=== PATIENT | male | born 1995 | race Caucasian/White ===

== ENCOUNTER 2017-10-30 17:58 | Emergency (ER) | payer SELFPAY ==
[2017-10-30 19:42] LABS: Basophils % (Auto) 0.5 % (0.0-1.8); Eosinophils # (Auto) 0.1 K/mm3 (0.0-0.4); Eosinophils % (Auto) 1.3 % (0.0-4.3); Hematocrit 43.8 % (35.5-45.6); Hemoglobin 14.6 gm/dl (11.8-15.2); Lymphocytes # (Auto) 2.3 K/mm3 (1.2-5.4); Mean Corpuscular HGB Conc 33 % (32-34); Mean Corpuscular Hemoglobin 31 pg (28-32); Mean Corpuscular Volume 94 fl (84-94); Monocytes # (Auto) 0.9 K/mm3 (0.0-0.8); Monocytes % (Auto) 9.5 % (0.0-7.3); Platelet Count 257 K/mm3 (140-440); Red Blood Count 4.67 M/mm3 (3.65-5.03); Red Cell Distribution Width 13.4 % (13.2-15.2)
[2017-10-30 20:04] LABS: Alanine Aminotransferase 14 units/L (7-56); Albumin 4.6 g/dL (3.9-5); BUN/Creatinine Ratio 20; Blood Urea Nitrogen 18 mg/dL (9-20); Hemolysis Index 13
[2017-10-30 20:45] LABS: Bacteria,Urine 1+ /HPF (Negative); Bilirubin,Urine NEG (Negative); Blood,Urine NEG (Negative); Color,Urine Straw (Yellow); Mucus,Urine FEW /HPF; Protein,Urine <15 mg/dL mg/dL (Negative); Urobilinogen,Urine < 2.0 mg/dL (<2.0)
[2017-10-30] MEDS ORDERED: TORADOL IM ONE (20:48)
[2017-10-30] MEDS ORDERED: ROCEPHIN IM ONE (21:10)
[2017-10-30] MEDS ORDERED: XYLOCAINE 1% MPF 5 mL INFILTRATI ONE (21:10)
[2017-10-30] MEDS ORDERED: ZITHROMAX PO ONE (21:11)
--- NOTE | 2017-10-30 21:50 | Cat Scan Report ---
FINAL REPORT EXAM: CT ABDOMEN PELVIS WO CON HISTORY: right side flank pain that radiates TECHNIQUE: CT abdomen and pelvis without contrast PRIORS: None. FINDINGS: No acute abnormality identified in the lung bases. No focal abnormality identified within the liver parenchyma. The spleen demonstrates normal size and attenuation. No pancreatic abnormalities seen. Kidneys demonstrate no evidence of hydronephrosis or nephrolithiasis. No ureteral calculus identified. The adrenal glands are unremarkable. Abdominal aorta is normal in caliber. There are some prominent right lower quadrant central mesenteric lymph nodes along with some mildly prominent distal small bowel loops. Nonspecific however may reflect mesenteric adenitis. The appendix is not definitively identified No signs of free fluid or free air No evidence of small bowel dilatation. Urinary bladder is unremarkable. IMPRESSION: Prominent right lower quadrant and mesenteric lymph nodes. Nonspecific finding however may be seen with mesenteric adenitis
--- NOTE | 2017-10-30 22:08 | Emergency Department Report ---
ED Male HPI - General Chief complaint: Abdominal Pain Stated complaint: RIGHT FLANK PAIN Time Seen by Provider: 10/30/17 20:44 Source: patient Mode of arrival: Ambulatory Limitations: No Limitations - History of Present Illness Initial comments: 22-year-old male presents to the emergency room for right flank pain and blood in urine. Patient reports that his urine is been dark and it hurts when he urinates. Patient reports that he is sexually active with women unprotected 2 partners in the last 6 months. He reports that he works out a lot. He reports that the right flank pain radiates to the right groin area. He reports that the pain is sharp intermittent. He reports he has taken no meds. He has no past medical history currently takes no medications on a daily basis and has no known drug allergies. MD Complaint: testicle pain (right testicle), other (right flank pain) -: days(s) (1) Location: right testicle Severity scale (0 -10): 8 Quality: sharp Consistency: intermittent Worsens with: urination blood in urine, dysuria. denies: fever, nausea/vomiting - Related Data Previous Rx's Medication Instructions Recorded Last Taken Type HYDROcodone/APAP 10-325 [[place] 1 each PO Q6HR PRN #20 tablet 01/24/14 01/31/14 Rx 10-325 mg TAB] Promethazine [Phenergan] 25 mg PO Q6H PRN #12 tablet 01/24/14 01/31/14 Rx Ranitidine HCl [Ranitidine] 150 mg PO Q12H #60 tablet 01/24/14 01/31/14 Rx Doxycycline [Vibramycin CAP] 100 mg PO BID #20 capsule 02/02/14 Unknown Rx metroNIDAZOLE [Flagyl] 500 mg PO Q8HR #20 tablet 02/02/14 Unknown Rx Acetaminophen/Codeine [Tylenol #3] 1 tab PO TID PRN #15 tab 02/03/15 Unknown Rx Ibuprofen [Motrin 800 MG tab] 800 mg PO Q8HR PRN #60 tablet 02/03/15 Unknown Rx Ciprofloxacin HCl [Cipro] 500 mg PO QDAY #7 tablet 10/30/17 Unknown Rx Ibuprofen [Motrin 800 MG tab] 800 mg PO Q8HR PRN #15 tablet 10/30/17 Unknown Rx Allergies Allergy/AdvReac Type Severity Reaction Status Date / Time No Known Allergies Allergy Verified 02/03/15 17:43 ED Review of Systems ROS: Stated complaint: RIGHT FLANK PAIN Other details as noted in HPI Constitutional: denies: chills, fever Endocrine: no symptoms reported Gastrointestinal: denies: abdominal pain, nausea, diarrhea Genitourinary: urgency, dysuria, hematuria, discharge, testicular pain Musculoskeletal: other Skin: denies: rash, lesions Neurological: denies: headache, weakness, paresthesias Psychiatric: denies: anxiety, depression Hematological/Lymphatic: denies: easy bleeding, easy bruising ED Past Medical Hx - Past Medical History Previous Medical History?: Yes Additional medical history: heart mumur - Surgical History Hx Appendectomy: Yes - Social History Smoking Status: Current Some Day Smoker Substance Use Type: Alcohol - Medications Home Medications: Home Medications Medication Instructions Recorded Confirmed Last Taken Type HYDROcodone/APAP 10-325 [[place] 1 each PO Q6HR PRN #20 tablet 01/24/14 02/02/14 01/31/14 Rx 10-325 mg TAB] Promethazine [Phenergan] 25 mg PO Q6H PRN #12 tablet 01/24/14 02/02/14 01/31/14 Rx Ranitidine HCl [Ranitidine] 150 mg PO Q12H #60 tablet 01/24/14 02/02/14 Rx Doxycycline [Vibramycin CAP] 100 mg PO BID #20 capsule 02/02/14 Unknown Rx metroNIDAZOLE [Flagyl] 500 mg PO Q8HR #20 tablet 02/02/14 Unknown Rx Acetaminophen/Codeine [Tylenol #3] 1 tab PO TID PRN #15 tab 02/03/15 Unknown Rx Ibuprofen [Motrin 800 MG tab] 800 mg PO Q8HR PRN #60 tablet 02/03/15 Unknown Rx Ciprofloxacin HCl [Cipro] 500 mg PO QDAY #7 tablet 10/30/17 Unknown Rx Ibuprofen [Motrin 800 MG tab] 800 mg PO Q8HR PRN #15 tablet 10/30/17 Unknown Rx ED Physical Exam - General Limitations: No Limitations General appearance: alert, in no apparent distress - Head Head exam: Present: atraumatic, normocephalic - Respiratory Respiratory exam: Present: normal lung sounds bilaterally. Absent: respiratory distress - Cardiovascular Cardiovascular Exam: Present: regular rate, normal rhythm. Absent: systolic murmur, diastolic murmur, rubs, gallop - GI/Abdominal GI/Abdominal exam: Present: soft - exam: Present: testicular tenderness (right). Absent: circumcision External exam: Present: other (right lymphadenopathy in the groin) - Extremities Exam Extremities exam: Present: normal inspection - Back Exam Back exam: Present: CVA tenderness (R) - Neurological Exam Neurological exam: Present: alert, oriented X3 - Psychiatric Psychiatric exam: Present: normal affect, normal mood - Skin Skin exam: Present: warm, dry, intact, normal color. Absent: rash ED Course Vital Signs 10/30/17 10/30/17 18:57 20:57 Temperature 98.4 F Pulse Rate 57 L Respiratory 16 18 Rate Blood Pressure 124/73 O2 Sat by Pulse 97 Oximetry ED Medical Decision Making - Lab Data Result diagrams: 10/30/17 19:17 10/30/17 19:17 - Radiology Data Radiology results: report reviewed, image reviewed FINDINGS: No acute abnormality identified in the lung bases. No focal abnormality identified within the liver parenchyma. The spleen demonstrates normal size and attenuation. No pancreatic abnormalities seen. Kidneys demonstrate no evidence of hydronephrosis or nephrolithiasis. No ureteral calculus identified. The adrenal glands are unremarkable. Abdominal aorta is normal in caliber. There are some prominent right lower quadrant central mesenteric lymph nodes along with some mildly prominent distal small bowel loops. Nonspecific however may reflect mesenteric adenitis. The appendix is not definitively identified No signs of free fluid or free air No evidence of small bowel dilatation. Urinary bladder is unremarkable. IMPRESSION: Prominent right lower quadrant and mesenteric lymph nodes. Nonspecific finding however may be seen with mesenteric adenitis Transcribed By: [facility] Dictated By: NICOLE MODI MD Electronically Authenticated By: NICOLE MODI MD Signed Date/Time: 10/30/172144 DD/ 44 TD/TT: 10/30/172144 FINDINGS: Right testicle is 4.5 x 2.4 x 3.1 centimeters The left testicle is 4.7 x 2.1 x 3.1 centimeters. There is normal echogenicity bilaterally. There is normal vascular flow on pulsed and color Doppler evaluation. Epididymis is not enlarged. There is no evidence for hydrocele or varicocele. Multiple small calcifications are present throughout both testicles most consistent with microlithiasis. IMPRESSION: Testicular microlithiasis No evidence for testicular torsion Transcribed By: [facility] Dictated By: NICOLE MODI MD Electronically Authenticated By: NICOLE MODI MD Signed Date/Time: 10/30/172209 DD/ 09 TD/TT: 10/30/172209 Critical care attestation.: If time is entered above; I have spent that time in minutes in the direct care of this critically ill patient, excluding procedure time. ED Disposition Clinical Impression: Possible exposure to STD, Acute right flank pain Disposition: DC-01 TO HOME OR SELFCARE Is pt being admited?: No Does the pt Need Aspirin: No Condition: Stable Instructions: Safe Sex (ED), Sexually Transmitted Diseases (ED) Additional Instructions: Please refrain from having intercourse until your partners tested or treated. You can take ibuprofen for pain. You can bring your ID to the hospital medical records in 7 days to obtain your STD results. Please follow-up with the health department for further evaluation and treatment. Prescriptions: Ciprofloxacin HCl [Cipro] 500 mg PO QDAY #7 tablet Ibuprofen [Motrin 800 MG tab] 800 mg PO Q8HR PRN #15 tablet PRN Reason: Pain Referrals: PRIMARY CARE, [Primary Care Provider] - 3-5 Days [facility] [Outside] - 3-5 Days [facility] [Outside] - 3-5 Days [facility] [Outside] - 3[facility]5 Days [facility] [Outside] - [facility] - 3-5 Days
--- NOTE | 2017-10-30 22:16 | Ultrasound Report ---
FINAL REPORT EXAM: US TESTICULAR DOPPLER COMP HISTORY: right testicular pain TECHNIQUE: Ultrasound scrotum PRIORS: None. FINDINGS: Right testicle is 4.5 x 2.4 x 3.1 centimeters The left testicle is 4.7 x 2.1 x 3.1 centimeters. There is normal echogenicity bilaterally. There is normal vascular flow on pulsed and color Doppler evaluation. Epididymis is not enlarged. There is no evidence for hydrocele or varicocele. Multiple small calcifications are present throughout both testicles most consistent with microlithiasis. IMPRESSION: Testicular microlithiasis No evidence for testicular torsion
[2017-10-30 23:49] VITALS: BP 123/73
== END 2017-10-30 23:44 | disposition home or self-care (01) ==
LOC: ED 17:58
DX: Z20.2 Contact with and (suspected) exposure to infections with a predominantly sexual mode of transmission (principal); R10.9 Unspecified abdominal pain; F17.200 Nicotine dependence, unspecified, uncomplicated; Z90.49 Acquired absence of other specified parts of digestive tract
CPT/HCPCS: 36415; 74176; 80053; 81001; 85025; 87591; 93975; 96372; 99284; J0696; J1885

== ENCOUNTER 2018-10-25 20:29 | Emergency (ER) | payer OTHER ==
--- NOTE | 2018-10-25 21:16 | Emergency Department Report ---
Blank Doc - Documentation Documentation: This is a 23-year-old male that presents with left sided abdominal pain with n ausea and vomiting. This initial assessment/diagnostic orders/clinical plan/treatment(s) is/are subject to change based on patient's health status, clinical progression and re- assessment by fellow clinical providers in the ED. Further treatment and workup at subsequent clinical providers discretion. Patient/guardians urged not to elope from the ED as their condition may be serious if not clinically assessed and managed. Initial orders include: 1- Patient sent to [facility] for further evaluation and treatment 2- labs 3- UA
[2018-10-25 21:18] VITALS: BP 124/76
[2018-10-25 21:56] LABS: Basophils % (Auto) 0.5 % (0.0-1.8); Eosinophils # (Auto) 0.3 K/mm3 (0.0-0.4); Eosinophils % (Auto) 3.3 % (0.0-4.3); Hematocrit 46.7 % (35.5-45.6); Hemoglobin 16.1 gm/dl (11.8-15.2); Lymphocytes # (Auto) 2.6 K/mm3 (1.2-5.4); Lymphocytes % (Auto) 31.1 % (13.4-35.0); Mean Corpuscular HGB Conc 35 % (32-34); Mean Corpuscular Volume 95 fl (84-94); Monocytes # (Auto) 0.8 K/mm3 (0.0-0.8); Monocytes % (Auto) 9.5 % (0.0-7.3); Platelet Count 266 K/mm3 (140-440); Red Blood Count 4.93 M/mm3 (3.65-5.03)
[2018-10-25 22:10] LABS: Alanine Aminotransferase 11 units/L (7-56); Albumin 4.4 g/dL (3.9-5); BUN/Creatinine Ratio 17; Blood Urea Nitrogen 17 mg/dL (9-20); Calcium 9.3 mg/dL (8.4-10.2); Hemolysis Index 17
[2018-10-25 22:17] LABS: Bilirubin,Urine NEG (Negative); Blood,Urine NEG (Negative); Color,Urine Yellow (Yellow); Mucus,Urine FEW /HPF; Protein,Urine <15 mg/dL mg/dL (Negative); Urobilinogen,Urine < 2.0 mg/dL (<2.0); WBC,Urine < 1.0 /HPF (0.0-6.0)
[2018-10-25 22:17] LABS: Bilirubin,Direct < 0.2 mg/dL (0-0.2)
== END 2018-10-26 00:10 | disposition left against medical advice (07) ==
LOC: ED 20:29
DX: R10.9 Unspecified abdominal pain (principal); Z53.21 Procedure and treatment not carried out due to patient leaving prior to being seen by health care provider
CPT/HCPCS: 36415; 80048; 80076; 81001; 83690; 85025